=== PATIENT | male | born 1985 | race African-American/Black ===

== ENCOUNTER 2024-05-11 22:46 | Emergency (ER) | payer OTHER ==
[~2024-05-11] VITALS: Ht 172.7 cm; Wt 59.1 kg
[~2024-05-11 22:46] MED LIST: CYCL-1 PO
[2024-05-12] MEDS ORDERED: AMOX-117 PO (00:44)
[2024-05-12] MEDS ORDERED: NAPR-56 PO (00:44)
[2024-05-12 01:28] VITALS: PULSE 52
[2024-05-12] MEDS: amox tr/potassium clavulanate 875/125mg TAB PO STA (01:32)
[2024-05-12] MEDS: ketorolac trometh 30MG/ML vial 30 MG/ML VIAL IM STA (01:32)
[2024-05-12 01:34] VITALS: BP 103/75; RESP 15; TEMP 98.2; O2SAT 100
== END 2024-05-12 01:35 | disposition home or self-care (01) ==
LOC: ER 22:47
DX: K02.9 Dental caries, unspecified (principal); K08.89 Other specified disorders of teeth and supporting structures; Z79.899 Other long term (current) drug therapy
CPT/HCPCS: 96372; 99283; J1885

== ENCOUNTER 2024-11-16 17:29 | Emergency (ER) | payer OTHER ==
[~2024-11-16] VITALS: Ht 170.2 cm; Wt 61.0 kg
[2024-11-16 17:34] VITALS: TEMP 99.7
[2024-11-16 18:21] LABS: EOSINOPHILS % (AUTO) 0.3 % (0-6); NEUTROPHILS # (AUTO) 2.7 X10'3 (1.8-7.7)
[2024-11-16 18:22] LABS: BASOPHILS % (AUTO) 0.5 % (0-1); HEMATOCRIT 45.2 % (42.0-52.0); HEMOGLOBIN 15.5 g/dl (14.0-17.9); LYMPHOCYTES # (AUTO) 1.8 X10'3 (1.1-4.8); LYMPHOCYTES % (AUTO) 31.6 % (21-51); MEAN CORPUSCULAR HEMOGLOBIN 28.8 PG (27.0-31.0); MEAN CORPUSCULAR HGB CONC 34.2 g/dL (33.0-36.5); MEAN CORPUSCULAR VOLUME 84.1 FL (78-98); MEAN PLATELET VOLUME 8.6 FL (7.4-10.4); MONOCYTES # (AUTO) 1.3 X10'3 (0-0.9); MONOCYTES % (AUTO) 21.7 % (2-12); NEUTROPHILS % (AUTO) 45.9 % (42-75); PLATELET COUNT 169 X10'3 (140-440); RED BLOOD COUNT 5.37 X10'6 (4.70-6.10); RED CELL DISTRIBUTION WIDTH 13.3 % (11.5-14.5); WHITE BLOOD COUNT 5.8 X10'3 (4.5-11.0)
[2024-11-16 18:34] LABS: ALANINE AMINOTRANSFERASE 183 U/L (12-78); ALBUMIN 3.4 G/DL (3.4-5.0); ALBUMIN/GLOBULIN RATIO 0.9 (1.1-1.5); ALKALINE PHOSPHATASE 81 IU/L (46-116); ANION GAP 7 (8-16); ASPARTATE AMINO TRANSFERASE 118 U/L (10-37); BILIRUBIN,TOTAL 0.9 MG/DL (0.1-1.0); BLOOD UREA NITROGEN 10 MG/DL (7-18); BUN/CREATININE RATIO 9.9 (10.0-20.0); CALCIUM 8.3 MG/DL (8.5-10.1); CHLORIDE 97 MMOL/L (99-107); CREATININE 1.01 MG/DL (0.60-1.10); GLUCOSE 90 MG/DL (70-104); LIPASE 20 U/L (16-77); POTASSIUM 4.3 MMOL/L (3.5-5.1); SODIUM 131 MMOL/L (135-145); TOTAL CARBON DIOXIDE 26.8 MMOL/L (24-32); TOTAL PROTEIN 7.2 G/DL (6.4-8.2); eCRCL 86 ML/MIN; eGFR > 90 ML/MIN
[2024-11-16 18:36] VITALS: BP 118/84; PULSE 85; RESP 16; O2SAT 98
[2024-11-16 18:49] LABS: TOTAL CELLS COUNTED 100
[2024-11-16 18:50] LABS: PLATELET ESTIMATE NORMAL
[2024-11-16] MEDS: mag hydrox/Alum hydrox/simeth 30ml oral suspension PO ONE (18:52)
[2024-11-16] MEDS: pantoprazole 40 MG vial IV STA (18:53)
[2024-11-16 19:03] LABS: BILIRUBIN,URINE NEGATIVE (Neg); CLARITY,URINE CLEAR (Clear); COLOR,URINE YELLOW (Yellow); GLUCOSE, URINE NEGATIVE (Neg); KETONES,URINE 15 mg/dl (Neg); LEUKOCYTE ESTERASE ,URINE NEGATIVE (Neg); NITRITES, URINE NEGATIVE (Neg); OCCULT BLOOD,URINE TRACE-INTACT (Neg); PROTEIN,URINE NEGATIVE (Neg); UROBILINOGEN,URINE 0.2 E.U/dL (0.2-1.0)
[2024-11-16 19:05] LABS: UA COLLECTION TYPE CLN CATCH MIDSTREAM
[2024-11-16] MEDS ORDERED: FAMO40TA73 PO (19:12)
[2024-11-16 19:17] LABS: BACTERIA,URINE NONE SEEN /HPF (Neg); RBC,URINE 0-2 /HPF (0-2); SQUAMOUS EPITHELIAL CELL,UR NONE SEEN /LPF (FEW); WBC,URINE NONE SEEN /HPF (0-4)
== END 2024-11-16 19:40 | disposition home or self-care (01) ==
LOC: ER 17:30
DX: K29.00 Acute gastritis without bleeding (principal); M25.512 Pain in left shoulder
CPT/HCPCS: 36415; 80053; 81001; 83690; 85007; 85025; 96374; 99283; J2470